=== PATIENT | male | born 1960 | race Two or more races ===

== ENCOUNTER → 2018-06-25 | Outpatient (CLI) | payer OTHER ==
[~2018-06-25] MED LIST: AMILODIPINE PO; ASA-EC81 MG PO; ASPIR-LOW81 MG PO; DIOVAN HCT 1601 EACH PO; METROPROL PO; NORVASC5 MG PO; TOPROL XL50 M1 PO; VALSARTAN-HCTZ1 EAC1 PO
== END | disposition home or self-care (01) ==
LOC: RAD 501 09:04
DX: M25.561 Pain in right knee (principal); M25.562 Pain in left knee

== ENCOUNTER 2018-12-15 14:11 | Outpatient (CLI) | payer OTHER | END 2018-12-15 14:20 | disposition home or self-care (01) | LOC: RAD 501 14:11 | DX: M25.561 Pain in right knee (principal) ==